=== PATIENT | male | born 1980 ===

== ENCOUNTER → 2016-02-13 | Outpatient (CLI) | payer OTHER ==
--- NOTE | 2016-02-13 16:06 | DIAGNOSTIC IMAGING REPORT ---
RIGHT CLAVICLE 2 VIEWS HISTORY: Right clavicle pain. RIGHT SHOULDER PAIN Right COMPARISON: Right clavicle 02/06/2016. FINDINGS: There is no fracture or dislocation. Soft tissue swelling at the acromioclavicular joint. There is mild widening of the acromioclavicular joint which has progressed. The acromioclavicular joint is widened up to 1.2 cm. There is no significant displacement of the distal clavicle in relation to the acromion. No radiopaque foreign bodies. IMPRESSION: 1. No fractures within the right clavicle. 2. Progressive soft tissue swelling and widening at the acromioclavicular joint. This is consistent with a grade I acromioclavicular separation. Electronically signed by: Luciano Schultz M.D. 02/13/2016 4:04 PM Dictated Date/Time: 02/13/2016 3:57 PM
== END | disposition home or self-care (01) ==
LOC: C.RDSM 10:15
PROVIDERS: ATTEND Family Medicine
DX: M25.511 Pain in right shoulder (principal)